=== PATIENT | male | born 1955 | race Caucasian/White ===

== ENCOUNTER 2017-12-19 20:14 | Emergency (ER) | payer MEDICARE ==
[2017-12-19 20:49] VITALS: BP 149/95
[2017-12-19] MEDS ORDERED: OXYCODONE-ACETAMINOPHEN 5-325 MG TABLET PO ONE (23:41)
--- NOTE | 2017-12-19 23:47 | ER Document Report ---
HPI - HPI Patient complains to provider of: right shoulder/hip pain Onset: Just prior to arrival Onset/Duration: Sudden Pain Level: 4 Notes: Patient states prior to arrival he got his right foot caught on the nail that was sticking up in the ground and tripped. Denies any puncture wound from the nail. Pt stated that when he fell he hit his right shoulder and right hip. Pt denies hitting his head, neck, or +LOC. Pt. stated he was able to get up and walk, although had pain right hip. Pt. has limited ROM right shoulder d/t pain. Denies CP, SOB, taking anticoagulants. - CONSTITUTIONAL Constitutional: DENIES: Fever, Chills - MUSCULOSKELETAL Musculoskeletal: REPORTS: Extremity pain Past Medical History - General Information source: Patient - Social History Smoking Status: Never Smoker Chew tobacco use (# tins/day): No Frequency of alcohol use: None Drug Abuse: None Family History: Reviewed & Not Pertinent Patient has suicidal ideation: No Patient has homicidal ideation: No Pulmonary Medical History: Denies: Hx Tuberculosis Neurological Medical History: Denies: Hx Seizures Endocrine Medical History: Reports: Hx Diabetes Mellitus Type 2 Renal/ Medical History: Reports: Hx Kidney Stones. Denies: Hx Peritoneal Dialysis Past Surgical History: Reports: Hx Cholecystectomy - 2003. Denies: Hx Pacemaker - Immunizations Hx Diphtheria, Pertussis, Tetanus Vaccination: No Vertical Provider Document - CONSTITUTIONAL Exam Limitations: No Limitations General Appearance: WD/WN, Mild Distress - Only upon palpation right shoulder right hip - INFECTION CONTROL TRAVEL OUTSIDE OF THE [place] IN LAST 30 DAYS: No - HEENT HEENT: Atraumatic, Normocephalic, PERRLA - NECK Neck: Normal Inspection, Supple - RESPIRATORY Respiratory: Breath Sounds Normal, No Respiratory Distress - CARDIOVASCULAR Cardiovascular: Regular Rate, Regular Rhythm - GI/ABDOMEN Gastrointestinal: Abdomen Soft, Abdomen Non-Tender - BACK Back: Normal Inspection, Abnormal Inspection Notes: No spinal tenderness cervical, thoracic, lumbar - MUSCULOSKELETAL/EXTREMETIES Musculoskeletal/Extremeties: MAEW - With pain, FROM - Left upper extremity, left lower extremity. Decreased range of motion right shoulder due to pain. Full range of motion right knee, ankle. Pt. refuses to bear weight right side d/ t pain Course - Re-evaluation Re-evalutation: X-rays and pain meds orders will reassess. X-ray returned negative. Upon reexamination patient has full range range of motion right shoulder with decreased pain. Patient able to get up off of the wheelchair and walk without difficulty. Return precautions given - Vital Signs Vital signs: Temp Pulse Resp BP Pulse Ox 98.1 F 115 H 16 149/95 H 94 12/19/17 20:46 12/19/17 20:46 12/19/17 20:46 12/19/17 20:46 12/19/17 20:46 Discharge - Discharge Clinical Impression: Abrasion, Hip injury Shoulder injury Qualifiers: Encounter type: initial encounter Laterality: right Qualified Code(s): S49.91XA - Unspecified injury of right shoulder and upper arm, initial encounter Condition: Stable Disposition: HOME, SELF-CARE Additional Instructions: Your x-ray results showed no acute fractures. As we talked about you may feel worse for the next couple of days before feeling better. Take [id number] Tylenol, Motrin, use heating pads, warm showers. Continue to move your right shoulder and hip area to prevent the muscles from freezing up. Follow-up with primary care in 24-48 hours. Return to the emergency department should your pain get worse you develop chest pain, shortness of breath, dizziness, lightheadedness. Referrals: STEWART PENNINGTON PA-C [NURSE PRACTITIONER] - Follow up as needed
--- NOTE | 2017-12-20 00:41 | RADIOLOGY REPORT (SQ) ---
EXAM DESCRIPTION: XR SHOULDER 2 OR MORE VIEWS COMPLETED DATE/TME: 12/19/2017 23:41 CLINICAL HISTORY: 62 years, Male, fall/pain COMPARISON: None. FINDINGS: 3 views of the right shoulder. No acute fracture or dislocation. No acute abnormalities of the right hemithorax. Minimal degenerative change of the acromioclavicular joint. IMPRESSION: No acute fracture or dislocation 2010 [employer]- All Rights Reserved
--- NOTE | 2017-12-20 00:43 | RADIOLOGY REPORT (SQ) ---
EXAM DESCRIPTION: XR HIP 2 OR MORE VIEWS COMPLETED DATE/TME: 12/19/2017 23:41 CLINICAL HISTORY: 62 years, Male, fall/pain COMPARISON: None. FINDINGS: Single view pelvis and lateral view of the right hip. Postoperative change of the lumbosacral spine. Normal osseous mineralization. No acute fracture or dislocation. IMPRESSION: No acute fracture or dislocation. 2011 [employer]- All Rights Reserved
== END 2017-12-20 01:10 | disposition home or self-care (01) ==
LOC: ER 20:14
DX: T14.8XXA Other injury of unspecified body region, initial encounter (principal); S49.91XA Unspecified injury of right shoulder and upper arm, initial encounter; S89.90XA Unspecified injury of unspecified lower leg, initial encounter; M25.551 Pain in right hip; M25.511 Pain in right shoulder; E11.9 Type 2 diabetes mellitus without complications; W01.0XXA Fall on same level from slipping, tripping and stumbling without subsequent striking against object, initial encounter
CPT/HCPCS: 99283; 73502; 73030; A9270